=== PATIENT | female | born 1945 | race Caucasian/White ===

== ENCOUNTER → 2019-02-18 10:51 | Outpatient (BNVA) | payer MEDICARE, OTHER, SELFPAY | PROVIDERS: Family Provider Family Medicine; PCP Family Medicine; Referring Provider Family Medicine; Visit Provider Family Medicine | DX: I10 Essential (primary) hypertension (principal); Z87.440 Personal history of urinary (tract) infections; E11.9 Type 2 diabetes mellitus without complications; F41.9 Anxiety disorder, unspecified | CPT/HCPCS: 80048; 81003; 83036 ==

== ENCOUNTER → 2019-07-15 15:05 | Outpatient (BNVA) | payer MEDICARE, OTHER, SELFPAY | PROVIDERS: Family Provider Family Medicine; PCP Family Medicine; Visit Provider Family Medicine | DX: E11.9 Type 2 diabetes mellitus without complications (principal); F41.1 Generalized anxiety disorder; I10 Essential (primary) hypertension; R10.13 Epigastric pain | CPT/HCPCS: 80053; 83036 ==

== ENCOUNTER 2019-08-08 09:25 | Outpatient (CLI) | payer MEDICARE, OTHER, SELFPAY ==
--- NOTE | 2019-08-08 09:30 | USCV_ITS ---
Brea Sage Age: 74 Gender: F : 1945 Exam Date: 08/08/2019 09:21 Ordering Phys: Dalila Miller DO Technologist: Hannah Urias Exam Location: [facility] [place]_ Indication: HISTORY: Varicose Veins PROCEDURES: Venous duplex imaging was performed in only the left lower extremity. The following venous structures were evaluated: common femoral vein, profunda vein, proximal portion of the greater saphenous vein, superficial femoral vein, and the popliteal vein. In addition, the posterior tibial and peroneal trunk were evaluated. Serial compression, augmentation maneuvers, and spectral Doppler flow evaluation were performed. FINDINGS: There is no evidence of LEFT deep vein thrombosis. No evidence of superficial thrombosis in the LEFT saphenous system. Reflux is demonstrated in the deep venous system at the level of the left Poplteal vein. Venous reflux is demonstrated in the LEFT greater saphenous vein with a spectral Doppler display of greater than 500 milliseconds at all levels evaluated. Venous reflux is demonstrated in the LEFT small saphenous vein with a spectral Doppler display of greater than 500 mlsec at the level of the proximal and mid calf. CONCLUSIONS 1. No evidence of DVT in the above-mentioned identifiable veins. 2. Significant venous reflux of greater than 500 ms(ranging anywhere from 2.5 to 2.8 seconds were noted throughout the greater saphenous vein segments, starting distal to the saphenofemoral junction, on the left side. At the below-knee level, the greater saphenous vein segment was 0.2 cm in diameter. All the greater saphenous vein segments were greater than 1 cm deep from the surface. 3. Significant venous reflux of greater than 500 ms also were noted at the proximal and mid small saphenous vein segments on the left side. But the vein segments were of small caliber and less than 1 cm deep from the surface. 4. Significant venous reflux of greater than 1000 ms was noted in the left popliteal vein as well. 5. The venous dimensions, depth from the surface and the reflux times are as mentioned above. No similar previous studies are available for comparison Dr Oly Cochran MD [facility] (Electronically Signed) Final Date: 08 August 2019 13:08 S
== END 2019-08-08 09:26 | disposition home or self-care (01) ==
LOC: RAD 09:28
PROVIDERS: PCP Family Medicine; Visit Provider Family Medicine
DX: M79.662 Pain in left lower leg (principal); M79.89 Other specified soft tissue disorders
CPT/HCPCS: 93971

== ENCOUNTER 2020-01-25 19:07 | Emergency (ER) | payer MEDICARE, OTHER, SELFPAY ==
[2020-01-25 19:33] VITALS: BP 216/95; PULSE 69; RESP 14; TEMP 36.6; O2SAT 97; BMI 25.6
--- NOTE | 2020-01-25 20:23 | W.ED.GENADLT ---
HPI - General Adult General: Chief complaint: General Medical Stated complaint: HIGH BP Time Seen by Provider: 01/25/20 20:22 History of Present Illness: HPI narrative: Patient is a 74-year-old female comes to the ED with high blood pressure. Patient says she has a history of hypertension and states that she has been taking two medications (amlodipine and benazepril) to treat her blood pressure for the past couple years. She says that she has been out of her amlodipine for about a month now, so she is only been taking one of her blood pressure medications. Today patient noticed her blood pressure was running high and came to the ED for evaluation. She denies any fever, chills, chest pain, shortness of breath, headache, vision changes or any neurological symptoms. Associated symptoms: Deny chest pain, dyspnea, headache(s), nausea, rash, palpitations or vomiting Review of Systems Narrative: Elevated blood pressure at home. Const: Denies: fever(s), chills or fatigue Eyes: Denies: change in vision or eye discomfort ENMT: Denies: throat pain, odynophagia, nasal discharge or nasal congestion Card: Denies: chest pain, palpitations, edema, swelling of feet/ankles, dyspnea on exertion or orthopnea Resp: Denies: dyspnea, productive cough or non-productive cough GI: Denies: abdominal pain, nausea, vomiting, diarrhea, constipation or hematochezia : Denies: flank pain, dysuria or hematuria Musc: Denies: neck pain, back pain or extremity swelling Skin/Breast: Denies: rash or new lesions Neuro: Denies: headache(s), numbness in extremities or weakness in extremities [facility] ED PFSH: Medical History Anxiety disorder Degenerative disc disease Diabetes Hypertension Hypothalamic hypothyroidism Social History Smoking and tobacco status: never smoked Alcohol intake: never Current occupation: RETIRED Physical Exam Const: COMMON NORMALS: no acute distress, patient oriented x3, healthy appearing and alert GENERAL APPEARANCE: cooperative and comfortable HENMT: COMMON NORMALS: normocephalic HEAD & SCALP: normocephalic MOUTH: Normal oral and palatal mucosa present THROAT: posterior oropharynx normal and uvula midline Eye: COMMON NORMALS: Equal, round and reactive pupils present, EOMs intact bilaterally, conjunctivae normal and normal visual moore by confrontation CONJUNCTIVA: Yes conjunctivae normal PUPIL: Yes Equal, round and reactive pupils present Neck/C-Spine: COMMON NORMALS: supple GENERAL: Yes normal visual inspection Resp: COMMON NORMALS: normal respiratory effort, No retractions, No use of accessory muscles and clear to auscultation bilaterally AUSCULTATION: clear to auscultation bilaterally Cardio: COMMON NORMALS: regular rate, regular rhythm, S1 normal heart sound present, S2 normal heart sound present, No gallops present (Cardio), No clicks present (Cardio), No murmurs present (Cardio) and Peripheral pulses 2+ throughout RATE: regular rate RHYTHM: regular rhythm HEART SOUNDS: S1 normal heart sound present and S2 normal heart sound present PERIPHERAL PULSES: Peripheral pulses 2+ throughout GI: COMMON NORMALS: Normal to inspection, nondistended, normoactive bowel sounds present, Soft to palpation, non-tender and no masses PALPATION: Yes Soft to palpation : COMMON NORMALS: Yes no CVA tenderness BLADDER/KIDNEY EXAM: Yes no CVA tenderness Back/Pelvis: COMMON NORMALS: no CVA tenderness Extremity: COMMON NORMALS: normal to inspection Neuro: COMMON NORMALS: patient oriented x3, CN's II-XII intact bilaterally, moves all extremities, no focal motor deficits and no sensory deficits noted SENSORIUM/ORIENTATION: Yes alert SENSORY EXAM: Yes extremities (intact) MOTOR EXAM: 5/5 motor strength present throughout Skin: GENERAL SKIN EXAM: dry skin Course Vital Signs: Vital signs: Vital Signs Temperature 97.8 F 01/25/20 19:33 Pulse Rate 64 01/25/20 21:56 Respiratory Rate 18 01/25/20 21:56 Blood Pressure 170/80 01/25/20 21:56 Pulse Oximetry 96 01/25/20 21:56 178/83 after labetalol. MDM - General Adult MDM Narrative: Medical decision making narrative: Patient is a 74-year-old female comes to the ED with elevated blood pressure. Patient has past medical history of hypertension and currently takes amlodipine and benazepril to control blood pressure. She has been out of her amlodipine for the last month. She is here in the ED and her blood pressure is 216/95. She is asymptomatic and feels normal. Neurological exam is normal patient denies any headache, vision changes or any other neurological symptoms. Patient was given dose of 20 mg IV labetalol. Blood pressure reduced to 170/80. Patient was discharged with asymptomatic hypertensive urgency and she was sent with a prescription of amlodipine. She was told to follow-up with her PCP in the next 7 to 10 days for reevaluation. Return to ED precautions given. Patient understood and agreed with plan. Discharge Plan Discharge Patient Disposition: Home Clinical Impression: Asymptomatic hypertensive urgency Condition: Stable Prescriptions: New amlodipine 10 mg tablet 10 mg PO DAILY Qty: 30 RF: 0 No Action diclofenac sodium [Voltaren] 1 % gel 2 gm TOPICAL QID RF: 0 magnesium 250 mg tablet 250 mg PO ONCE RF: 0 cholecalciferol (vitamin D3) 1,000 unit capsule 1,000 unit PO ONCE RF: 0 aspirin [Adult Aspirin Regimen] 81 mg tablet,delayed release (DR/EC) 81 mg PO ONCE RF: 0 Pepto-Bismol Max St 525 mg/15 mL suspension 525 mg PO Q30M PRNRF: 0 omeprazole magnesium 20 mg capsule,delayed release(DR/EC) 20 mg PO DAILY Qty: 30 RF: 0 (DME) FreeStyle Sergio 14 Day Sensor Kit See Rx Instructions .ROUTE .MEDSUPPLY Qty: 2 RF: 1 (DME) FreeStyle Sergio 14 Day [place] Misc See Rx Instructions .ROUTE .MEDSUPPLY Qty: 1 RF: 0 (DME) FreeStyle Sergio 14 Day [place] Misc See Rx Instructions .ROUTE .MEDSUPPLY Qty: 1 RF: 0 Januvia 100 mg tablet 100 mg PO DAILY Qty: 30 RF: 1 sertraline 50 mg tablet 50 mg PO DAILY Qty: 30 RF: 0 amlodipine [Norvasc] 10 mg tablet 10 mg PO ONCE 90 Days Qty: 90 RF: 3 benazepril 40 mg tablet 40 mg PO ONCE 90 Days Qty: 90 RF: 3 levothyroxine [Synthroid] 88 mcg tablet 88 mcg PO ONCE Qty: 90 RF: 1 glipizide 5 mg tablet 5 mg PO BID 90 Days Qty: 180 RF: 1 Discharge Orders: Discharge ED (Routine); Ordered 01/25/20 Ordered By: Kevin Albarran Referrals: Dalila Miller DO [Primary Care Provider] - Discharge Diet: Regular Discharge Activity: Resume usual activity Patient Instructions: Chronic Hypertension (ED), Hypertensive Crisis (ED) Activity Restrictions/Additional Instructions: Follow-up with medical provider as directed. Contact your PCP on Monday to set up an appointment for reevaluation in about 7 to 10 days. Continue taking all home medications as prescribed. Sending you with a prescription for amlodipine for you to fill until you see PCP. Return to the ER or your medical provider if condition worsens. Please read and understand discharge instructions. If any questions, please ask. Coding Level of Care Code ED Mercantile Reporter for Ashleyg Fwd Exam Comprehensive
[2020-01-25 21:07] VITALS: BP 224/116
[2020-01-25] MEDS: labetalol 5 mg/mL SDV 20mL 20 MG IVP (21:27)
[2020-01-25 21:56] VITALS: BP 170/80; PULSE 64; RESP 18; O2SAT 96
== END 2020-01-25 21:59 | disposition home or self-care (01) ==
PROVIDERS: Emergency Provider Physician Assistant; PCP Family Medicine
DX: I16.0 Hypertensive urgency (principal); Z79.82 Long term (current) use of aspirin; Z79.84 Long term (current) use of oral hypoglycemic drugs; E11.9 Type 2 diabetes mellitus without complications; I10 Essential (primary) hypertension
CPT/HCPCS: 12345; 96374; 96375; 99282; 99283; J3490

== ENCOUNTER 2022-09-28 17:07 | Emergency (ER) | payer MEDICARE, OTHER, SELFPAY ==
[2022-09-28 17:14] VITALS: BP 204/83; PULSE 89; RESP 18; TEMP 36.8; O2SAT 96; BMI 21.1
--- NOTE | 2022-09-28 18:23 | USR_ITS ---
PROCEDURE INFORMATION: Exam: US Duplex Right Lower Extremity Veins, Limited Exam date and time: 09/28/2022 7:02 PM Age: 77 years old Clinical indication: Pain; Leg, lower; Right; Additional info: Pain swelling lower leg TECHNIQUE: Imaging protocol: Real-time duplex ultrasound of the right extremity with 2-D chaudhry scale, color Doppler flow and spectral waveform analysis including responses to compression and other maneuvers (when performed) with image documentation. Limited exam was focused on the right lower extremity veins. COMPARISON: No relevant prior studies available. FINDINGS: Right deep veins: Unremarkable. The common femoral, femoral, proximal profunda femoral, popliteal, posterior tibial and peroneal veins are patent without thrombus. Normal Doppler waveforms. Normal compressibility and/or augmentation response. Superficial veins: Unremarkable. Saphenofemoral junction is patent without thrombus. Soft tissues: Unremarkable. US/[place] [id number] IMPRESSION: No sonographic evidence of deep vein thrombosis.
[2022-09-28 19:18] LABS: Basophils # 0.1 10^3/uL (0.0-0.1); Eosinophils # 0.1 10^3/uL (0.0-0.8); Eosinophils % 1.2 %; Hematocrit 41.6 % (37.0-47.0); Lymphocytes # 1.3 10^3/uL (0.8-4.8); Lymphocytes % 18.2 %; Mean Corpuscular HGB Conc 33.7 g/dL (30.0-36.0); Mean Corpuscular Hemoglobin 31.4 pg (28.0-34.0); Mean Corpuscular Volume 93.3 fl (81-99); Mean Platelet Volume 11.4 fL (7.4-10.4); Monocytes # 0.5 10^3/uL (0.2-0.9); Monocytes % 7.7 %; Neutrophils # 4.93 10^3/uL (1.8-7.7); Neutrophils % 71.6 %; Nucleated Red Blood Cells % 0 %; Platelet Count 208 10^3/cmm (130-400); Red Blood Count 4.46 10^6/uL (4.1-5.3); Red Cell Distribution Width 12.2 % (12.1-15.1); White Blood Count 6.9 10^3/uL (4.0-10.0)
[2022-09-28 19:30] LABS: D Dimer 0.44 ug/mIFEU (0-0.59)
[2022-09-28 19:32] LABS: Alanine Aminotransferase 11 U/L (0-33); Alkaline Phosphatase 88 U/L (35-105); Anion Gap 13.7 (5-19); Aspartate Amino Transferase 14 U/L (0-32); Blood Urea Nitrogen 15 mg/dL (8-23); Calcium 9.1 mg/dL (8.5-10.5); Carbon Dioxide 26 mmol/L (22-29); Chloride 102 mmol/L (98-107); Globulin 3.6 g/dL (1.3-4.6); Glucose 321 mg/dL (65-115); Osmolality Calculated 299 mOsm/kg (285-295); Potassium 3.7 mmol/L (3.5-5.1); Sodium 138 mmol/L (136-145); Total Bilirubin 0.3 mg/dL (0.15-1.2); Total Protein 7.6 g/dL (6.6-8.7)
--- NOTE | 2022-09-28 20:32 | W.ED.EXTPRO ---
HPI - Extremity Problem General: Chief complaint: Extremity Problem,Nontraumatic Stated complaint: pain in right leg Time Seen by Provider: 09/28/22 20:26 History of Present Illness: Patient presents to the ER with 3-day history of right lower leg pain and numbness. Patient states she had multiple venous surgeries on bilateral legs. And legs a little bit swollen and red in color. But the right leg has been causing her more pain than normal for about the last 3 days. Patient also states her blood pressures been up all the way to 204/83 and she is on blood pressure medicines. And she has been taking them. Review of Systems General: Reports: 10 or more systems reviewed and unremarkable except in HPI and below PFSH ED PFSH: Medical History Anxiety disorder Degenerative disc disease Diabetes Hypertension Hypothalamic hypothyroidism Social History Smoking and tobacco status: never smoked Alcohol intake: never Substance/Drug Use: never Current occupation: RETIRED Physical Exam Const: COMMON NORMALS: no acute distress, average body habitus, patient oriented x3, no limitations, healthy appearing, alert and well nourished HENMT: COMMON NORMALS: normocephalic, atraumatic, hearing grossly normal bilaterally, external ears normal and moist oral mucous membranes HEAD & SCALP: normocephalic and atraumatic EXTERNAL EAR: Yes external ears normal Neck/C-Spine: COMMON NORMALS: full ROM, no lymphadenopathy, supple, no meningeal signs, no JVD and Thyroid normal THYROID: Thyroid normal Chest: COMMONS NORMALS: normal inspection of the chest and normal palpation of entire chest wall Resp: COMMON NORMALS: normal respiratory effort, No retractions, No use of accessory muscles and clear to auscultation bilaterally AUSCULTATION: clear to auscultation bilaterally Cardio: COMMON NORMALS: no JVD, regular rate, regular rhythm, S1 normal heart sound present, S2 normal heart sound present, No gallops present (Cardio), No clicks present (Cardio), No murmurs present (Cardio) and No rub (Cardio) RATE: regular rate RHYTHM: regular rhythm HEART SOUNDS: S1 normal heart sound present and S2 normal heart sound present GI: COMMON NORMALS: Normal to inspection, nondistended, normoactive bowel sounds present, Soft to palpation, non-tender, No hepatosplenomegaly present and no masses PALPATION: Yes Soft to palpation and Yes No hepatosplenomegaly present Extremity: NARRATIVE EXTREMITY EXAM: Tender to palpation of right lower extremity no more tenderness over the calf region and areas in the anterior region. Mild edema bilateral knees, ready in nature. Neuro: COMMON NORMALS: patient oriented x3 SENSORIUM/ORIENTATION: Yes alert MENINGEAL SIGNS: Yes no meningeal signs Course Vital Signs: Vital signs: Vital Signs Temperature 98.2 F 09/28/22 17:14 Pulse Rate 89 09/28/22 17:14 Respiratory Rate 18 09/28/22 17:14 Blood Pressure 204/83 09/28/22 17:14 Pulse Oximetry 96 09/28/22 17:14 Oxygen Delivery Me thod Room Air 09/28/22 17:14 MDM - Extremity (Nontraumatic) Medical Decision Making Presents to the ER with complaints of right lower extremity pain for the last 3 days. Patient has had multiple venous surgeries in her bilateral lower extremities. Patient had a physical exam performed as well as blood work-up and venous ultrasound all of which were negative. These was explained in detail to the patient who understood. Patient be discharged home to follow-up with her primary care doctor. Differential Diagnosis Unlikely herpes zoster, gout, cellulitis, superficial thrombophlebitis, deep venous thrombosis of upper extremity, lower extremity edema or deep vein thrombosis of lower extremity Medical Records I reviewed the patient's medical records. Lab Data I reviewed the patient's lab results. 09/28/22 18:55 09/28/22 18:55 Radiology Impressions Venous Duplex 09/28/22 18:23 IMPRESSION: No sonographic evidence of deep vein thrombosis. Laboratory Results WBC 6.9 10^3/uL (4.0-10.0) 09/28/22 18:55 RBC 4.46 10^6/uL (4.1-5.3) 09/28/22 18:55 Hgb 14.0 g/dL (11.5-15.3) 09/28/22 18:55 Hct 41.6 % (37.0-47.0) 09/28/22 18:55 MCV 93.3 fl (81-99) 09/28/22 18:55 MCH 31.4 pg (28.0-34.0) 09/28/22 18:55 MCHC 33.7 g/dL (30.0-36.0) 09/28/22 18:55 RDW 12.2 % (12.1-15.1) 09/28/22 18:55 Plt Count 208 10^3/cmm (130-400) 09/28/22 18:55 MPV 11.4 fL (7.4-10.4) H 09/28/22 18:55 Neut % (Auto) 71.6 % 09/28/22 18:55 Lymph % (Auto) 18.2 % 09/28/22 18:55 Mcdonald % (Auto) 7.7 % 09/28/22 18:55 Eos % (Auto) 1.2 % 09/28/22 18:55 Baso % (Auto) 1.0 % 09/28/22 18:55 Neut # (Auto) 4.93 10^3/uL (1.8-7.7) 09/28/22 18:55 Lymph # (Auto) 1.3 10^3/uL (0.8-4.8) 09/28/22 18:55 Mcdonald # (Auto) 0.5 10^3/uL (0.2-0.9) 09/28/22 18:55 Eos # (Auto) 0.1 10^3/uL (0.0-0.8) 09/28/22 18:55 Baso # (Auto) 0.1 10^3/uL (0.0-0.1) 09/28/22 18:55 Nucleated RBC % (auto) 0 % 09/28/22 18:55 Nucleated RBCs # 0.0 /100WBC 09/28/22 18:55 D-Dimer 0.44 ug/mIFEU (0-0.59) 09/28/22 18:55 Sodium 138 mmol/L (136-145) 09/28/22 18:55 Potassium 3.7 mmol/L (3.5-5.1) 09/28/22 18:55 Chloride 102 mmol/L (98-107) 09/28/22 18:55 Carbon Dioxide 26 mmol/L (22-29) 09/28/22 18:55 Anion Gap 13.7 (5-19) 09/28/22 18:55 BUN 15 mg/dL (8-23) 09/28/22 18:55 Creatinine 0.7 mg/dL (0.5-0.9) 09/28/22 18:55 GFR Calculation Not Reportable 09/28/22 18:55 Glucose 321 mg/dL (65-115) H 09/28/22 18:55 Calculated Osmolality 299 mOsm/kg (285-295) H 09/28/22 18:55 Calcium 9.1 mg/dL (8.5-10.5) 09/28/22 18:55 Total Bilirubin 0.3 mg/dL (0.15-1.2) 09/28/22 18:55 AST 14 U/L (0-32) 09/28/22 18:55 ALT 11 U/L (0-33) 09/28/22 18:55 Alkaline Phosphatase 88 U/L (35-105) 09/28/22 18:55 Total Protein 7.6 g/dL (6.6-8.7) 09/28/22 18:55 Albumin 4.0 g/dL (3.5-5.2) 09/28/22 18:55 Globulin 3.6 g/dL (1.3-4.6) 09/28/22 18:55 Discharge Plan Discharge Patient Disposition: Home Clinical Impression: Acute pain of right lower extremity Condition: Stable Prescriptions: No Action diclofenac sodium [Voltaren] 1 % gel 2 gm TOPICAL QID magnesium 250 mg tablet 250 mg PO ONCE cholecalciferol (vitamin D3) 1,000 unit capsule 1,000 unit PO ONCE aspirin [Adult Aspirin Regimen] 81 mg tablet,delayed release (DR/EC) 81 mg PO ONCE Pepto-Bismol Max St 525 mg/15 mL suspension 525 mg PO Q30M PRN omeprazole magnesium 20 mg capsule,delayed release(DR/EC) 20 mg PO DAILY Qty: 30 0RF (DME) FreeStyle Sergio 14 Day Sensor Kit See Rx Instructions .ROUTE .MEDSUPPLY Qty: 2 1RF Rx Instructions: As directed (DME) FreeStyle Sergio 14 Day [place] Misc See Rx Instructions .ROUTE .MEDSUPPLY Qty: 1 0RF Rx Instructions: As directed (DME) FreeStyle Sergio 14 Day [place] Misc See Rx Instructions .ROUTE .MEDSUPPLY Qty: 1 0RF Rx Instructions: As directed Januvia 100 mg tablet 100 mg PO DAILY Qty: 30 1RF sertraline 50 mg tablet 50 mg PO DAILY Qty: 30 0RF amlodipine [Norvasc] 10 mg tablet 10 mg PO ONCE 90 Days Qty: 90 3RF benazepril 40 mg tablet 40 mg PO ONCE 90 Days Qty: 90 3RF levothyroxine [Synthroid] 88 mcg tablet 88 mcg PO ONCE Qty: 90 1RF glipizide 5 mg tablet 5 mg PO BID 90 Days Qty: 180 1RF amlodipine 10 mg tablet 10 mg PO DAILY Qty: 30 0RF Discharge Orders: Discharge ED (Routine); Ordered 09/28/22 Ordered By: Jonel Mason Referrals: Randell Hameed MD [Primary Care Provider] - 1 week Patient Instructions: Leg Pain (ED) Activity Restrictions/Additional Instructions: Your work-up in the ER was negative for a blood clot. Please follow-up with your primary care doctor for further evaluation and treatment of your leg pain. Coding Level of Care Code ED Associate Professor Of Criminal Justice for Elif Nicholson
[2022-09-28 20:43] VITALS: PULSE 70; O2SAT 98
== END 2022-09-28 20:44 | disposition home or self-care (01) ==
PROVIDERS: Nurse Practitioner Family; Emergency Provider Emergency Medicine; PCP Family Medicine
DX: M79.604 Pain in right leg (principal); Z79.82 Long term (current) use of aspirin; Z79.84 Long term (current) use of oral hypoglycemic drugs
CPT/HCPCS: 36415; 80053; 85025; 85378; 93971; 99284

== ENCOUNTER 2022-10-10 13:36 | Emergency (ER) | payer MEDICARE, OTHER, SELFPAY ==
[2022-10-10] VITALS (7 sets, daily range): BP systolic 136–237; BP diastolic 81–147; PULSE 66–74; RESP 15–18; TEMP 36.6; O2SAT 94–98; BMI 23.0
--- NOTE | 2022-10-10 14:03 | ECG_ITS ---
[facility] Test Date: 2022-10-10 Pat Name: Brea Sage Department: Room: Gender: Female Supervisor [employer]: : 1945 Requested By: Sj Hernandez Order Number: [id number] Porter MD: Elliot Cote M.D. Measurements Intervals [place] Rate: 68 P: 38 [place]: 154 QRS: -35 QRSD: 103 T: 19 QT: 413 QTc: 441 Interpretive Statements SINUS RHYTHM LEFT AXIS DEVIATION [QRS AXIS < -30] MODERATE VOLTAGE CRITERIA FOR LVH, CONSIDER NORMAL VARIANT [MEETS CRITERIA IN ONE OF: R(aVL), S(V1), R(V5), R(V5/V6)+S(V1)] Compared to ECG 01/04/2019 11:55:24 Left-axis deviation now present Electronically Signed On 10-10-2022 20:24:10 CDT by Elliot Cote M.D. [email or web address]
--- NOTE | 2022-10-10 14:44 | ED_ITS ---
HPI - Extremity Problem General: Chief complaint: Extremity Problem,Nontraumatic Stated complaint: high bp Time Seen by Provider: 10/10/22 13:57 PFSH ED PFSH: Medical History Anxiety disorder Degenerative disc disease Diabetes Hypertension Hypothalamic hypothyroidism Social History Smoking and tobacco status: never smoked Alcohol intake: never Substance/Drug Use: never Current occupation: RETIRED Course Vital Signs: Vital signs: Vital Signs Temperature 98 F 10/10/22 13:41 Pulse Rate 71 10/10/22 14:21 Respiratory Rate 17 10/10/22 14:21 Blood Pressure 217/81 10/10/22 14:21 Pulse Oximetry 16 L 10/10/22 13:41 Discharge Plan Discharge Condition: Stable Prescriptions: No Action cholecalciferol (vitamin D3) 1,000 unit capsule 1,000 unit PO DAILY aspirin [Adult Aspirin Regimen] 81 mg tablet,delayed release (DR/EC) 81 mg PO DAILY Pepto-Bismol Max St 525 mg/15 mL suspension 525 mg PO Q30M PRN (Reason: Diarrhea) (DME) FreeStyle Sergio 14 Day Sensor Kit See Rx Instructions .ROUTE .MEDSUPPLY Qty: 2 1RF Rx Instructions: As directed (DME) FreeStyle Sergio 14 Day [place] Misc See Rx Instructions .ROUTE .MEDSUPPLY Qty: 1 0RF Rx Instructions: As directed (DME) FreeStyle Sergio 14 Day [place] Misc See Rx Instructions .ROUTE .MEDSUPPLY Qty: 1 0RF Rx Instructions: As directed benazepril 40 mg tablet 40 mg PO ONCE 90 Days Qty: 90 3RF levothyroxine [Synthroid] 88 mcg tablet 88 mcg PO ONCE Qty: 90 1RF glipizide 5 mg tablet 5 mg PO BID 90 Days Qty: 180 1RF Referrals: Randell Hameed MD [Primary Care Provider] - Coding Level of Care Code ED Chemical Laboratory Technician for Elif Nicholson
--- NOTE | 2022-10-10 14:49 | W.ED.GENADLT ---
HPI - General Adult General: Chief complaint: Extremity Problem,Nontraumatic Stated complaint: high bp Time Seen by Provider: 10/10/22 13:57 Source: patient Mode of arrival: ambulatory History of Present Illness: 77-year-old female presents emergency room with complaints of pain and some swelling in the right lower leg anteriorly distal. She been seen in the emergency room for it last week had a venous duplex done which was negative. It is still somewhat tender to palpation. Today she was then seen in her primary care office for follow-up and they noted to have markedly elevated blood pressure she noticed elevation of her blood pressure yesterday and took an extra dose of her benazepril. She usually takes 40 mg a day yesterday took 80 total and she took another 40 this morning. Onset (ago): day(s) Severity: mild Quality: aching Pain Consistency: constant Relieving factors: none Exacerbating factors: none Associated symptoms: Deny chest pain, confusion, cough, diaphoresis, decreased appetite, dyspnea, fevers/chills, headache(s), malaise, nausea, rash, palpitations, seizures, short of breath, syncope, vomiting or weakness Treatments prior to arrival: none Review of Systems Const: Denies: malaise or diaphoresis Card: Denies: chest pain, palpitations or syncope Resp: Denies: dyspnea GI: Denies: nausea or vomiting Skin/Breast: Denies: rash Neuro: Denies: headache(s) or confusion PFS ED PFSH: Medical History Anxiety disorder Degenerative disc disease Diabetes Hypertension Hypothalamic hypothyroidism Social History Smoking and tobacco status: never smoked Alcohol intake: never Substance/Drug Use: never Current occupation: RETIRED Physical Exam Const: GENERAL APPEARANCE: cooperative and comfortable ORIENTATION/CONSCIOUSNESS: Yes awake, Yes oriented to person, Yes oriented to place and Yes oriented to time HENMT: COMMON NORMALS: normocephalic, atraumatic and hearing grossly normal bilaterally HEAD & SCALP: normocephalic and atraumatic Resp: COMMON NORMALS: normal respiratory effort, No retractions, No use of accessory muscles and clear to auscultation bilaterally AUSCULTATION: clear to auscultation bilaterally Cardio: COMMON NORMALS: regular rate, regular rhythm and No murmurs present (Cardio) RATE: regular rate RHYTHM: regular rhythm GI: COMMON NORMALS: Soft to palpation and No hepatosplenomegaly present AUSCULTATION: Yes normoactive bowel sounds PALPATION: Yes Soft to palpation, No Tenderness to palpation present (GI), No Guarding due to palpation present (GI) and Yes No hepatosplenomegaly present Extremity: COMMON NORMALS: normal to inspection, capillary refill normal, no clubbing, cyanosis or edema, no calf tenderness and no pedal edema OTHER: Prominent noninflamed varicose vein in the anterior tibia distally negative Homans Neuro: SENSORIUM/ORIENTATION: Yes oriented to person, Yes oriented to place and Yes oriented to time Skin: COMMON NORMALS: no rashes or lesions noted GENERAL SKIN EXAM: no rashes or lesions noted Course Vital Signs: Vital signs: Vital Signs Temperature 98 F 10/10/22 13:41 Pulse Rate 66 10/10/22 15:00 Respiratory Rate 15 10/10/22 15:00 Blood Pressure 191/98 10/10/22 15:00 Pulse Oximetry 98 10/10/22 15:00 [facility] - General Adult Medical Decision Making Prominent varicose vein on exam there is no sign of DVT at Patient requires venous duplex at this time Blood pressure did improve with treatment we will add amlodipine and metoprolol. Recheck with blood pressure primary care doctor within the next week. Return if has further problems. Medical Records I reviewed the patient's medical records. Lab Data I reviewed the patient's lab results. 10/10/22 15:50 10/10/22 15:50 Laboratory Results WBC 6.81 10^3/uL (3.29-11.43) 10/10/22 15:50 RBC 4.67 10^6/uL (3.85-5.65) 10/10/22 15:50 Hgb 14.60 g/dL (11.27-16.99) 10/10/22 15:50 Hct 43.5 % (36-47) 10/10/22 15:50 MCV 93.1 fl (85-98) 10/10/22 15:50 MCH 31.3 pg (27-33) 10/10/22 15:50 MCHC 33.6 g/dL (30-55) 10/10/22 15:50 RDW 12.0 % (12.1-15.1) L 10/10/22 15:50 Plt Count 201 10^3/cmm (157-399) 10/10/22 15:50 MPV 11.3 fL (7.4-10.4) H 10/10/22 15:50 Neut % (Auto) 68.9 % 10/10/22 15:50 Lymph % (Auto) 21.0 % 10/10/22 15:50 Tucker % (Auto) 7.9 % 10/10/22 15:50 Eos % (Auto) 0.7 % 10/10/22 15:50 Baso % (Auto) 1.2 % 10/10/22 15:50 Neut # (Auto) 4.69 10^3/uL (1.8-7.7) 10/10/22 15:50 Lymph # (Auto) 1.4 10^3/uL (0.8-4.8) 10/10/22 15:50 Tucker # (Auto) 0.5 10^3/uL (0.2-0.9) 10/10/22 15:50 Eos # (Auto) 0.1 10^3/uL (0.0-0.8) 10/10/22 15:50 Baso # (Auto) 0.1 10^3/uL (0.0-0.1) 10/10/22 15:50 Nucleated RBC % (auto) 0 % 10/10/22 15:50 Nucleated RBCs # 0.0 /100WBC 10/10/22 15:50 Sodium 141 mmol/L (136-145) 10/10/22 15:50 Potassium 4.0 mmol/L (3.5-5.1) 10/10/22 15:50 Chloride 106 mmol/L (98-107) 10/10/22 15:50 Carbon Dioxide 26 mmol/L (22-29) 10/10/22 15:50 Anion Gap 13.0 (5-19) 10/10/22 15:50 BUN 15 mg/dL (8-23) 10/10/22 15:50 Creatinine 0.6 mg/dL (0.5-0.9) 10/10/22 15:50 GFR Calculation Not Reportable 10/10/22 15:50 Glucose 152 mg/dL (65-115) H 10/10/22 15:50 Calculated Osmolality 296 mOsm/kg (285-295) H 10/10/22 15:50 Calcium 9.7 mg/dL (8.5-10.5) 10/10/22 15:50 Total Bilirubin 0.5 mg/dL (0.15-1.2) 10/10/22 15:50 AST 14 U/L (0-32) 10/10/22 15:50 ALT 9 U/L (0-33) 10/10/22 15:50 Alkaline Phosphatase 67 U/L (35-105) 10/10/22 15:50 Total Protein 7.8 g/dL (6.6-8.7) 10/10/22 15:50 Albumin 4.3 g/dL (3.5-5.2) 10/10/22 15:50 Globulin 3.5 g/dL (1.3-4.6) 10/10/22 15:50 Discharge Plan Discharge Patient Disposition: Home Clinical Impression: Essential hypertension Condition: Stable Prescriptions: New Toprol XL 25 mg tablet extended release 24 hr 25 mg PO DAILY Qty: 30 0RF amlodipine 5 mg tablet 5 mg PO DAILY Qty: 30 0RF No Action cholecalciferol (vitamin D3) 1,000 unit capsule 1,000 unit PO DAILY aspirin [Adult Aspirin Regimen] 81 mg tablet,delayed release (DR/EC) 81 mg PO DAILY Pepto-Bismol Max St 525 mg/15 mL suspension 525 mg PO Q30M PRN (Reason: Diarrhea) (DME) FreeStyle Sergio 14 Day Sensor Kit See Rx Instructions .ROUTE .MEDSUPPLY Qty: 2 1RF Rx Instructions: As directed (DME) FreeStyle Sergio 14 Day [place] Misc See Rx Instructions .ROUTE .MEDSUPPLY Qty: 1 0RF Rx Instructions: As directed (DME) FreeStyle Sergio 14 Day [place] Misc See Rx Instructions .ROUTE .MEDSUPPLY Qty: 1 0RF Rx Instructions: As directed benazepril 40 mg tablet 40 mg PO ONCE 90 Days Qty: 90 3RF levothyroxine [Synthroid] 88 mcg tablet 88 mcg PO ONCE Qty: 90 1RF glipizide 5 mg tablet 5 mg PO BID 90 Days Qty: 180 1RF Discharge Orders: Discharge ED (Routine); Ordered 10/10/22 Ordered By: Sj Moncada Referrals: Randell Hameed MD [Primary Care Provider] - Discharge Diet: Usual diet Discharge Activity: Increase activity as tolerated Patient Instructions: Chronic Hypertension (ED), Opioid Safety, Pain Management Activity Restrictions/Additional Instructions: You are seen today in the emergency room with elevated blood pressure recommend you continue the benazepril and add amlodipine 5 mg daily and Toprol-XL 25 mg daily. Start the amlodipine and metoprolol tomorrow you were given doses of these medications while in the emergency room today. Coding Level of Care Code ED Accounts Payable Professional for Elif Nicholson
[2022-10-10] MEDS: amlodipine 10 mg Tablet PO (15:33)
[2022-10-10] MEDS: metoprolol tartrate 25 mg Tablet PO (15:33)
[2022-10-10] MEDS: hyDRALAzine 20 mg/mL INJ 1 mL IVP (15:33)
[2022-10-10 16:10] LABS: Basophils # 0.1 10^3/uL (0.0-0.1); Basophils % 1.2 %; Eosinophils # 0.1 10^3/uL (0.0-0.8); Eosinophils % 0.7 %; Hematocrit 43.5 % (36-47); Lymphocytes # 1.4 10^3/uL (0.8-4.8); Mean Corpuscular HGB Conc 33.6 g/dL (30-55); Mean Corpuscular Hemoglobin 31.3 pg (27-33); Mean Corpuscular Volume 93.1 fl (85-98); Mean Platelet Volume 11.3 fL (7.4-10.4); Monocytes # 0.5 10^3/uL (0.2-0.9); Monocytes % 7.9 %; Neutrophils # 4.69 10^3/uL (1.8-7.7); Neutrophils % 68.9 %; Nucleated Red Blood Cells % 0 %; Platelet Count 201 10^3/cmm (157-399); Red Blood Count 4.67 10^6/uL (3.85-5.65); White Blood Count 6.81 10^3/uL (3.29-11.43)
[2022-10-10 16:22] LABS: Alanine Aminotransferase 9 U/L (0-33); Albumin Level 4.3 g/dL (3.5-5.2); Alkaline Phosphatase 67 U/L (35-105); Aspartate Amino Transferase 14 U/L (0-32); Blood Urea Nitrogen 15 mg/dL (8-23); Calcium 9.7 mg/dL (8.5-10.5); Carbon Dioxide 26 mmol/L (22-29); Chloride 106 mmol/L (98-107); Creatinine Clr Calc Pharmacy 53.9584; Globulin 3.5 g/dL (1.3-4.6); Glucose 152 mg/dL (65-115); Osmolality Calculated 296 mOsm/kg (285-295); Sodium 141 mmol/L (136-145); Total Bilirubin 0.5 mg/dL (0.15-1.2); Total Protein 7.8 g/dL (6.6-8.7)
== END 2022-10-10 17:42 | disposition home or self-care (01) ==
PROVIDERS: Emergency Provider Family Medicine; PCP Family Medicine
DX: I10 Essential (primary) hypertension (principal); Z79.82 Long term (current) use of aspirin; Z79.84 Long term (current) use of oral hypoglycemic drugs; E11.9 Type 2 diabetes mellitus without complications
CPT/HCPCS: 80053; 85025; 93005; 96374; 99284; J0360

== ENCOUNTER → 2022-10-21 08:48 | Outpatient (BNVA) | payer MEDICARE, OTHER, SELFPAY | PROVIDERS: PCP Family Medicine; Visit Provider Family Medicine | DX: E11.9 Type 2 diabetes mellitus without complications (principal); E03.8 Other specified hypothyroidism; I10 Essential (primary) hypertension; F41.1 Generalized anxiety disorder; G47.00 Insomnia, unspecified; H26.9 Unspecified cataract | CPT/HCPCS: 80053; 80061; 81000; 83036; 84439; 84443 ==

== ENCOUNTER → 2023-06-07 11:45 | Outpatient (BNVA) | payer MEDICARE, OTHER, SELFPAY | PROVIDERS: PCP Family Medicine; Visit Provider Family Medicine | DX: E11.9 Type 2 diabetes mellitus without complications (principal); I10 Essential (primary) hypertension; E03.8 Other specified hypothyroidism; F41.1 Generalized anxiety disorder | CPT/HCPCS: 80053; 83036; 84439; 84443 ==